=== PATIENT | female | born 1960 | race Caucasian/White ===

== ENCOUNTER → 2021-04-27 20:43 | Outpatient (REF) | payer OTHER, SELFPAY | LOC: HO.SL 20:43 | PROVIDERS: PCP Internal Medicine; Visit Provider Internal Medicine | DX: G47.33 Obstructive sleep apnea (adult) (pediatric) (principal); J45.909 Unspecified asthma, uncomplicated; E66.9 Obesity, unspecified | CPT/HCPCS: 95811 ==